=== PATIENT | female | born 2000 | race Caucasian/White ===

== ENCOUNTER 2020-05-05 09:38 | Outpatient (CLI) | payer BC | END 2020-05-05 09:39 | disposition home or self-care (01) | LOC: CTENTCT 09:38 | PROVIDERS: ATTEND Otolaryngology Plastic Surgery within the Head & Neck | DX: J32.9 Chronic sinusitis, unspecified (principal) | CPT/HCPCS: 70486 ==

== ENCOUNTER 2022-05-05 07:52 | Outpatient (CLI) | payer BC | END 2022-05-05 07:53 | disposition home or self-care (01) | LOC: NM 07:52 | PROVIDERS: ATTEND Family Medicine | DX: R10.9 Unspecified abdominal pain (principal) | CPT/HCPCS: 78227; A9537 ==